=== PATIENT | male | born 1950 | race Caucasian/White ===

== ENCOUNTER 2020-10-05 18:40 | Emergency (ER) | payer OTHER ==
[2020-10-05 19:51] LABS: BASOPHIL 0.6 % (0-2); EOSINOPHIL 0.4 % (0-7); HCT 42.4 % (42.0-52.0); HGB 14.4 g/dl (13.2-18.0); LYMPHOCYTE 20.3 % (15-48); MCH 29.6 pg (25.0-31.0); MCV 87.1 fL (78.0-100.0); MONOCYTE 11.2 % (0-12); NRBC 0; PLT 323 K/uL (150-400); RBC 4.87 M/uL (4.70-6.00); RDW 13.2 % (11.5-14.0); WBC 9.9 K/uL (4.0-10.5)
[2020-10-05 19:55] LABS: INR 1.06 (0.9-1.2); PROTHROMBIN TIME 13.1 SECONDS (11.4-13.6)
[2020-10-05 19:59] LABS: BILIRUBIN NEGATIVE (NEGATIVE); BLOOD 2+ Ery/uL (NEGATIVE); CLARITY CLEAR (CLEAR); COLOR YELLOW (YELLOW); GLUCOSE (U) NORMAL (NORMAL); LEUKOCYTES NEGATIVE Leu/uL (NEGATIVE); NITRITE NEGATIVE (NEGATIVE); PROTEIN NEGATIVE (NEGATIVE); SPECIFIC GRAVITY >=1.030 (1.001-1.030); pH 5.5 (5.0-9.0)
[2020-10-05 20:00] LABS: AMPHETAMINES NEGATIVE (NEGATIVE); BARBITURATES NEGATIVE (NEGATIVE); ECSTASY (MDMA) NEGATIVE (NEGATIVE); MARIJUANA (THC) NEGATIVE (NEGATIVE); METHADONE NEGATIVE (NEGATIVE); OPIATES NEGATIVE (NEGATIVE); OXYCODONE NEGATIVE (NEGATIVE)
[2020-10-05 20:05] LABS: CALCIUM OXALATE CRYSTALS MODERATE; SQUAMOUS EPITHELIAL CELLS RARE
[2020-10-05 20:07] LABS: IRON % SATURATION 22.8 %SAT (20-50)
[2020-10-05 20:14] LABS: PRO-BNP 200 pg/mL (<125)
[2020-10-05 20:17] LABS: ALBUMIN 3.9 g/dL (3.4-5.0); ALKALINE PHOSHATASE 163 U/L (46-116); ALT 48 U/L (16-63); AST 31 U/L (15-37); BILIRUBIN - TOTAL 0.6 mg/dL (0.2-1.0); BUN 16 mg/dL (7-18); BUN/CREAT RATIO (CALC) 15.2 RATIO; CHLORIDE 106 mmol/L (98-107); CO2 (BICARBONATE) 26 mmol/L (21-32); CREATININE 1.05 mg/dL (0.67-1.17); GLOBULIN (CALCULATION) 3.4 g/dL; GLUCOSE 83 mg/dL (74-106); MAGNESIUM 2.2 mg/dL (1.8-2.4); POTASSIUM 4.1 mmol/L (3.5-5.1); TOTAL PROTEIN 7.3 g/dL (6.4-8.2)
== END 2020-10-05 22:45 | disposition home or self-care (01) ==
LOC: FER 18:40
PROVIDERS: Emergency Medicine
DX: R41.82 Altered mental status, unspecified (principal); E86.0 Dehydration; I49.1 Atrial premature depolarization; I10 Essential (primary) hypertension; Z87.19 Personal history of other diseases of the digestive system
CPT/HCPCS: 36415; 70450; 71045; 72125; 80053; 80305; 81001; 82140; 83540; 83550; 83605; 83735; 83880; 84145; 84443; 84484; 85025; 85610; 85730; 93005; G0480

== ENCOUNTER 2021-06-28 09:48 | Inpatient (IN) | payer OTHER ==
[~2021-06-28] VITALS: Ht 177.8 cm; Wt 95.5 kg
[2021-06-28 11:41] LABS: BASOPHIL 0.2 % (0-2); EOSINOPHIL 0 % (0-7); HCT 43.5 % (42.0-52.0); HGB 14.4 g/dl (13.2-18.0); LYMPHOCYTE 5.9 % (15-48); MCHC 33.1 g/dL (32.0-36.0); MCV 87.5 fL (78.0-100.0); MONOCYTE 3.5 % (0-12); MPV 9.2 fL (6.0-9.5); NRBC 0; PLT 238 K/uL (150-400); RBC 4.97 M/uL (4.70-6.00); RDW 13.3 % (11.5-14.0); WBC 6.6 K/uL (4.0-10.5)
[2021-06-28 11:42] LABS: NEUTROPHIL 90.1 % (41-80)
[2021-06-28 12:15] LABS: ALBUMIN 3.4 g/dL (3.4-5.0); BILIRUBIN - TOTAL 0.6 mg/dL (0.2-1.0); BUN/CREAT RATIO (CALC) 13.6 RATIO; CREATININE 0.81 mg/dL (0.67-1.17); GLOBULIN (CALCULATION) 3.4 g/dL; POTASSIUM 4.1 mmol/L (3.5-5.1); TOTAL PROTEIN 6.8 g/dL (6.4-8.2)
[2021-06-28 12:25] LABS: LACTIC ACID 2.3 mmol/L (0.4-1.9)
[2021-06-28 13:31] LABS: BILIRUBIN NEGATIVE (NEGATIVE); BLOOD 1+ Ery/uL (NEGATIVE); CLARITY CLEAR (CLEAR); COLOR YELLOW (YELLOW); GLUCOSE (U) NORMAL (NORMAL); LEUKOCYTES NEGATIVE Leu/uL (NEGATIVE); NITRITE NEGATIVE (NEGATIVE); PROTEIN 2+ mg/dL (NEGATIVE)
[2021-06-28 13:36] LABS: BACTERIA 1+; MUCOUS TRACE
[2021-06-29] MEDS ORDERED: PROTONIX 40MG T40 MG PO (03:39)
[2021-06-29] MEDS ORDERED: PRINIVIL20 MG PO (03:39)
[2021-06-29 11:16] LABS: FLU B NEGATIVE B (NEGATIVE B)
[2021-07-01 06:30] LABS: HCT 37.2 % (42.0-52.0); HGB 12.4 g/dl (13.2-18.0); MCH 29.2 pg (25.0-31.0); MCHC 33.3 g/dL (32.0-36.0); MCV 87.7 fL (78.0-100.0); MPV 9.4 fL (6.0-9.5); RBC 4.24 M/uL (4.70-6.00); RDW 13.2 % (11.5-14.0); WBC 8.5 K/uL (4.0-10.5)
[2021-07-01 06:51] LABS: BUN/CREAT RATIO (CALC) 34.2 RATIO; CREATININE 0.76 mg/dL (0.67-1.17); POTASSIUM 4.3 mmol/L (3.5-5.1)
[2021-07-01] MEDS ORDERED: VENTOLIN HFA IN18 GM INH (15:14)
[2021-07-01] MEDS ORDERED: ZINC SULFATE50 MG PO (15:14)
[2021-07-01] MEDS ORDERED: LOPRESSOR50 MG PO (15:14)
[2021-07-01] MEDS ORDERED: DULERA 200 MCG8.8 GM INH (15:14)
[2021-07-01] MEDS ORDERED: VITAMIN D31250 MC1 PO (15:14)
[2021-07-01] MEDS ORDERED: ASCORBIC ACID500 MG PO (15:14)
[2021-07-01] MEDS ORDERED: DEXAMETHAS10 MG/1 M2 PO (15:14)
[2021-07-01] MEDS ORDERED: VITAMIN B-121000 MC1 PO (15:14)
== END 2021-07-01 18:00 | disposition home or self-care (01) | DRG 871 ==
LOC: FER 09:48 → FMS 22:28
PROVIDERS: Emergency Medicine; Internal Medicine; Nurse Practitioner Acute Care; ADMIT Internal Medicine
PROC: 8E0ZXY6 Isolation (ICD-10-PCS; principal; 2021-06-28)
PROC: XW033G6 Introduction of REGN-COV2 Monoclonal Antibody into Peripheral Vein, Percutaneous Approach, New Technology Group 6 (ICD-10-PCS; 2021-06-28)
PROC: XW033E5 Introduction of Remdesivir Anti-infective into Peripheral Vein, Percutaneous Approach, New Technology Group 5 (ICD-10-PCS; 2021-06-28)
DX: A41.89 Other specified sepsis (principal); U07.1 COVID-19; J12.82 Pneumonia due to coronavirus disease 2019; J96.01 Acute respiratory failure with hypoxia; E87.2 Acidosis; I10 Essential (primary) hypertension; R65.20 Severe sepsis without septic shock; Z23 Encounter for immunization; K21.9 Gastro-esophageal reflux disease without esophagitis; K44.9 Diaphragmatic hernia without obstruction or gangrene; E66.9 Obesity, unspecified; I71.2 Thoracic aortic aneurysm, without rupture; T80.89XA Other complications following infusion, transfusion and therapeutic injection, initial encounter; K76.0 Fatty (change of) liver, not elsewhere classified; E86.0 Dehydration; Z90.89 Acquired absence of other organs; Z82.3 Family history of stroke; Z79.899 Other long term (current) drug therapy; Z68.30 Body mass index [BMI] 30.0-30.9, adult
CPT/HCPCS: 36415; 36600; 71045; 71275; 80048; 80053; 81001; 82803; 83605; 83690; 84145; 85025; 87088; 87804; 87899; 94010; 94762; C9399; J1100; J1650; J2405; J2543; J3490; J7030; J7050; M0243; Q0244; U0002